=== PATIENT | male | born 1995 | race Two or more races ===

== ENCOUNTER 2018-09-26 08:52 | Emergency (ER) | payer SELFPAY ==
[~2018-09-26] VITALS: Ht 177.8 cm; Wt 90.7 kg
[2018-09-26] MEDS ORDERED: EPINEPHrine HCL 1 MG/10 ML SYRG IV ONE (08:53)
[2018-09-26] MEDS ORDERED: SODIUM BICARBONATE 8.4% INJ 50ML SYRINGE IV ONE (08:53)
[2018-09-26 09:24] VITALS: BP 80/63
== END 2018-09-26 14:22 | disposition expired ==
LOC: EDBD 08:52 → ER 08:52 → EDUNIT# 08:52 → ER 14:22
DX: I46.9 Cardiac arrest, cause unspecified (principal)
CPT/HCPCS: 31500; 36430; 36556; 86850; 86900; 86901; 86920; 92950; 99291; J0171; P9016